=== PATIENT | female | born 1970 | race Caucasian/White ===

== ENCOUNTER 2016-10-05 21:50 | Emergency (ER) | payer BC ==
[~2016-10-05 21:50] MED LIST: ACAI BERRY500 MG PO; AMOXICILLIN875 MG; CENTRAL-VITE1 EAC1 PO; CINNAMON500 MG PO; EPINEPHRIN0.3 MG/0.2 IM; ESCITALOPRAM OX10 M1 PO; MEDROL4 M1 PO; MOTRIN IB200 M1 PO; NORCO 5/325 TAB1 TAB PO; PREDNISONE10 M1 PO; PREDNISONE20 M1 PO; SYNTHROID137 MC1 PO; SYNTHROID137 MCG; VITAMIN A8000 UNIT PO; VITAMIN C1000 MG PO; VITAMIN D-32000 UNIT PO; XANAX0.25 M1 PO; [UNRECOGNIZED DRUG - OTHER]
== END 2016-10-05 21:57 ==
LOC: EDMED 21:50
DX: T78.40XA Allergy, unspecified, initial encounter (principal); Z88.6 Allergy status to analgesic agent
CPT/HCPCS: J0171; J7512